=== PATIENT | male | born 2000 ===

== ENCOUNTER 2025-03-14 13:15 | Emergency (ER) | payer SELFPAY ==
[2025-03-14] MEDS ORDERED: Sodium Chloride 0.9% 10 ML Syringe FLUSH PRN ×2 (13:17)
[2025-03-14] MEDS ORDERED: Sodium Chloride 0.9% 2.5 ML Syringe FLUSH PRN ×2 (13:17)
[2025-03-14] MEDS: Succinylcholine 200 MG/10 ML MDV IVPUSH STA (13:20)
[2025-03-14] MEDS: Etomidate 2 MG/ML 20 ML SDV IVPUSH ONE (13:20)
[2025-03-14] MEDS: Ondansetron 4 MG/2 ML SDV IVPUSH ONE (13:25)
[2025-03-14] MEDS: levETIRAcetam 500 MG/5 ML SDV IVPUSH ONE ×3 (13:26→18:19)
[2025-03-14 13:30] LABS: BASOPHILS PERCENT AUTO 0.5 % (0.0-1.0); EOSINOPHILS ABSOLUTE AUTO 0.11 K/uL (0.00-0.45); EOSINOPHILS PERCENT AUTO 0.5 % (0.0-6.0); HEMATOCRIT 45.2 % (42.0-52.0); HEMOGLOBIN 14.2 g/dL (14.0-18.0); IMMATURE GRAN ABSOLUTE AUTO 0.32 K/uL (0.00-0.05); IMMATURE GRAN PERCENT AUTO 1.6 % (0.0-0.4); LYMPHOCYTES ABSOLUTE AUTO 3.41 K/uL (1.00-4.80); LYMPHOCYTES PERCENT AUTO 16.9 % (24.0-44.0); MEAN CORPUSCULAR HEMOGLOBIN 25.3 pg (28.0-32.0); MEAN CORPUSCULAR HGB CONC 31.4 g/dL (32.0-36.0); MEAN CORPUSCULAR VOLUME 80.4 fL (83.0-99.0); MEAN PLATELET VOLUME 9.6 fL (9.4-12.4); MONOCYTES ABSOLUTE AUTO 0.84 K/uL (0.00-0.80); MONOCYTES PERCENT AUTO 4.2 % (0.0-8.0); NEUTROPHILS ABSOLUTE AUTO 15.41 K/uL (1.80-7.70); NEUTROPHILS PERCENT AUTO 76.3 % (41.0-71.0); PLATELET COUNT,PLT 431 K/uL (150-400); RED BLOOD CELL COUNT 5.62 M/uL (4.52-5.90); WHITE BLOOD CELL COUNT,WBC 20.19 K/uL (3.9-11.3)
[2025-03-14] MEDS: propofoL 1,000 MG/100 ML 100 ML IV SCH (13:30)
[2025-03-14] MEDS: Propofol 200 MG/20 ML SDV IVPUSH ONE ×7 (13:30→19:29)
[2025-03-14] MEDS ORDERED: propofoL 1,000 MG/100 ML 0 ML ONE (13:39)
[2025-03-14] MEDS ORDERED: Propofol 200 MG/20 ML SDV ONE (13:39)
[2025-03-14 13:40] LABS: INR 1.02 (0.86-1.11)
[2025-03-14 13:53] LABS: A/G RATIO 1.1 (0.9-1.6); ACETAMINOPHEN <2.0 ug/mL; ALANINE AMINOTRANSFERASE,ALT 24 IU/L (14-63); ALBUMIN 4.1 g/dL (3.4-5.0); ALKALINE PHOSPHATASE 103 U/L (46-116); ASPARTATE AMNIOTRANSFERASE,AST 17 IU/L (15-37); BILIRUBIN TOTAL 0.3 mg/dL (0.2-1.0); BLOOD UREA NITROGEN,BUN 11 mg/dL (7.0-18.0); CALCIUM 8.5 mg/dL (8.5-10.1); CARBON DIOXIDE,CO2 18.2 mmol/L (21.0-32.0); CHLORIDE,CL 100 mmol/L (98-107); CREATININE 1.3 mg/dL (0.8-1.3); EST CRCL DRUG DOSING (CG) 92.03 mL/min; ETHANOL BLOOD MEDICAL <3 mg/dL; GLUCOSE RANDOM 186 mg/dL (74-106); LIPASE 20 U/L (16-77); SALICYLATE 1.5 mg/dL (0.0-20.0); SODIUM,NA 135 mmol/L (136-148)
[2025-03-14 13:54] LABS: ESTIMATED GFR 80 mL/min (>60)
[2025-03-14 13:56] LABS: LACTIC ACID 9.2 mmol/L (0.4-2.0)
[2025-03-14] MEDS: fentaNYL/Normal Saline 2,500 MCG in Premix Bag 1 BAG IV SCH (14:25)
[2025-03-14] MEDS: Diphtheria,Pertussis(Acell),Tetanus Vaccine 0.5 ML Syringe IM ONE (14:29)
[2025-03-14] MEDS: Sodium Chloride 0.9% 1,000 ML IV ONE ×3 (14:36→14:37)
[2025-03-14 14:54] LABS: BASE EXCESS ARTERIAL -5.6 (-2.0-3.0); BICARBONATE,ARTERIAL 20 mEq/L (21-28); PCO2 ARTERIAL 39 mmHG (35-45); PO2 ARTERIAL 266 mmHG (83-108)
[2025-03-14] MEDS: fentaNYL 100 MCG/2 ML SDV IVPUSH ONE (15:06)
[2025-03-14] MEDS: VANCOmycin 2 GM/400 ML 2 GM in Premix Bag 1 BAG IV ONE (15:45)
[2025-03-14 15:53] LABS: BASE EXCESS VENOUS -5.2 (-2.0-3.0); PH,VENOUS 7.26 (7.32-7.43)
[2025-03-14 15:56] LABS: APPEARANCE,URINE CLOUDY; BILIRUBIN,URINE NEGATIVE (NEGATIVE); COLOR,URINE YELLOW; GLUCOSE,URINE NEGATIVE (NEGATIVE); KETONES,URINE NEGATIVE (NEGATIVE); LEUKOCYTE ESTERASE,URINE NEGATIVE (NEGATIVE); NITRITE,URINE NEGATIVE (NEGATIVE); OCCULT BLOOD,URINE NEGATIVE (NEGATIVE); PH,URINE 5.5 (5.0-8.0); PROTEIN,URINE NEGATIVE (NEGATIVE); UROBILINOGEN,URINE 0.2 EU/dL (<2.0)
[2025-03-14] MEDS: Piperacillin/Tazobactam 4.5 GM in Sodium Chloride 0.9% 100 ML IV ONE (15:57)
[2025-03-14 16:06] LABS: AMORPHOUS SEDIMENT,URINE HEAVY (NEGATIVE); AMPHETAMINES SCREEN, URINE NEGATIVE (CUTOFF=500); BACTERIA,URINE NOT SEEN (NEGATIVE); BARBITURATE SCREEN,URINE NEGATIVE (CUTOFF=200); BENZODIAZEPINES SCREEN,URINE NEGATIVE (CUTOFF=150); BUPRENORPHINE SCREEN,URINE NEGATIVE (CUTOFF=10); CALCIUM OXALATE CRYSTALS,URINE MODERATE (NEGATIVE); EPITHELIAL CELLS,URINE OCCASIONAL (NONE-FEW); METHADONE SCREEN, URINE NEGATIVE (CUTOFF=200); METHAMPHETAMINES SCREEN, URINE NEGATIVE (CUTOFF=500); OXYCODONE SCREEN,URINE NEGATIVE (CUT0FF=100); PCP SCREEN,URINE NEGATIVE (CUTOFF=25); RBC,URINE 0-2 (0-2/HPF); THC SCREEN,URINE 20 NG/ML PRESUMPTIVE POSITIVE (CUTOFF=50); WBC,URINE 0-1 (0-5/HPF)
[2025-03-14 17:28] LABS: PH,VENOUS 7.26 (7.32-7.43)
[2025-03-14 17:29] LABS: BASE EXCESS VENOUS -6.4 (-2.0-3.0)
[2025-03-14] MEDS: levETIRAcetam 500 MG/5 ML SDV ONE (18:17)
[2025-03-14] MEDS: propofoL 1,000 MG/100 ML 100 ML ONE (18:17)
[2025-03-14] MEDS ORDERED: Naloxone 0.4 MG/ML SDV IVPUSH PRN (18:22)
[2025-03-14] MEDS: fentaNYL 100 MCG/2 ML SDV ONE (19:02)
== END 2025-03-14 18:58 ==
LOC: MW.ED 13:15
DX: G40.901 Epilepsy, unspecified, not intractable, with status epilepticus (principal); R41.82 Altered mental status, unspecified; R29.3 Abnormal posture; R11.10 Vomiting, unspecified; Z23 Encounter for immunization
CPT/HCPCS: 31500; 36415; 36556; 36600; 51702; 70450; 70496; 70498; 71045; 71260; 72125; 74177; 80053; 80143; 80179; 80305; 80307; 81001; 82803; 83605; 83690; 85025; 85610; 86850; 86900; 86901; 87040; 90471; 90715; 93005; 96365; 96366; 96368; 96375; 96376; 99291; 99292; G0390; J0330; J1953; J2405; J2543; J2704; J3010; J3372; J3490; J7030; 93010; 99285